=== PATIENT | female | born 1955 | race African-American/Black ===

== ENCOUNTER 2016-11-12 07:08 | Emergency (ER) | payer MEDICAID ==
[~2016-11-12] VITALS: Ht 167.6 cm; Wt 59.0 kg
[2016-11-12 07:21] VITALS: BP 155/86
== END 2016-11-12 09:07 | disposition home or self-care (01) ==
LOC: ER 08:17
DX: Z76.0 Encounter for issue of repeat prescription (principal); I10 Essential (primary) hypertension
CPT/HCPCS: 99283

== ENCOUNTER 2016-12-25 15:44 | Emergency (ER) | payer MEDICAID ==
[~2016-12-25] VITALS: Ht 167.6 cm; Wt 64.0 kg
[2016-12-25] MEDS ORDERED: AMLO2.5T45 PO (16:18)
[2016-12-25] MEDS ORDERED: LOSA50TA20 PO (16:18)
[2016-12-25] MEDS ORDERED: HYDR25TA PO (16:18)
[2016-12-26 01:07] VITALS: BP 156/83
== END 2016-12-26 01:10 | disposition home or self-care (01) ==
LOC: ER 16:06
DX: I10 Essential (primary) hypertension (principal); F17.200 Nicotine dependence, unspecified, uncomplicated; Z98.890 Other specified postprocedural states
CPT/HCPCS: 99283